=== PATIENT | male | born 1955 | race Caucasian/White ===

== ENCOUNTER 2018-01-28 11:22 | Outpatient (REF) | payer BC, SELFPAY ==
[2018-01-28 21:10] LABS: Anion Gap 10.7 mmol/L (3-11); BUN 8 mg/dL (7-18); CO2 25.3 mmol/L (21.0-32.0); CREATININE 0.85 mg/dL (0.70-1.30); Calcium 8.7 mg/dL (8.5-10.1); Chloride 103 mmol/L (98-107); Cholesterol 131 mg/dL (50-200); Glucose 267 mg/dL (70-100); HDL Cholesterol 35 mg/dL (40-60); LDL CHOLESTEROL 87 mg/dL (<100); Potassium 4.1 mmol/L (3.5-5.1); Sodium 139 mmol/L (136-145); Triglyceride 103 mg/dL (30-150)
[2018-01-31 12:07] LABS: Hepatitis C Ab w Rflx HCV PCR Negative (NEGAT)
== END 2018-01-28 11:42 ==
LOC: NCHCN 11:22
PROVIDERS: PCP Internal Medicine; Visit Provider Internal Medicine
DX: E78.5 Hyperlipidemia, unspecified (principal); I25.10 Atherosclerotic heart disease of native coronary artery without angina pectoris; E66.9 Obesity, unspecified; Z00.00 Encounter for general adult medical examination without abnormal findings; Z11.59 Encounter for screening for other viral diseases
CPT/HCPCS: 80048; 80061; 83721; 86803

== ENCOUNTER 2018-02-02 08:23 | Outpatient (REF) | payer BC, SELFPAY ==
[2018-02-02 12:59] LABS: Glucose 183 mg/dL (70-100)
[2018-02-02 13:51] LABS: Hemoglobin A1C 9.5 % (4.5-6.2)
== END 2018-02-02 08:43 ==
LOC: NCHCN 08:23
PROVIDERS: PCP Internal Medicine; Visit Provider Internal Medicine
DX: R73.9 Hyperglycemia, unspecified (principal)
CPT/HCPCS: 82947; 83036

== ENCOUNTER 2018-02-16 10:27 | Outpatient (CLI) | payer BC, SELFPAY ==
--- NOTE | 2018-02-10 15:30 | DIABASSESS_ITS ---
DESCRIPTION/ASSESSMENT: Juliocesar Valerio presents for newly diagnosed type 2 diabetes focused on nutrition to manage his diabetes. Food - Eats 3 meals a day in addition to snacks plus a snack mid morning. He has cut his portions of cold cereal and stopped added sugar, or g[place] muffin with peanut butter. He has a meat/cheese sandwich with chips, vegetable, fruit and sweet (brownie). He loves his meat and potato with vegetables. He might have fruit in evening. He was drinking large amounts of sweetened iced tea daily as well as 12-16 ounces orange juice and a [place] nectar between meals. Physical Activity - his work gives him intermittent physical activity; some days very active, other days sedentary. His work schedule makes it difficult to do regular physical activity, although he states he has easy access to the [place]. Medication - 500mg Metformin twice daily until he sees his provider in ~6 weeks. Risks/Related health history Coping - states he has stress from work that he does not believe he lets get to him, although he does express frustration when staff does not perform to his expectations. He is also concerned about his father who is failing. INTERVENTION: Explained benefits of early intensive intervention to minimize medication including potential to manage with lifestyle only for some people with diabetes. Explained diagnostic criteria based on A1c. Food Guidelines - reviewed diabetes food guide with emphasis on increased vegetables and decreased processed carbohydrates. He has given up sugar sweetened beverages and is urged to cut back on his portion of juice to 1/2 cup or have orange instead. Physical Activity - explained benefits regarding weight, diabetes, blood pressure. He is encouraged to work toward 150 minutes physical activity per week. Monitoring - checked his blood sugar today: random blood sugar 109mg/dl. Discussed this in relation to blood sugar at diagnosis and blood sugar goals. He wishes to monitor his blood sugars at home. Reviewed procedure for monitoring. He is given log sheet for blood sugar and food and instructed in paired monitoring. Risks/Related health history - history of mild heart attack managed with statin and BP medication. He feels reassured his food changes have resulted in improvement in hyperglycemia. ACTION PLAN: He will continue his current plan and cut back more on beverages containing sugar attempt to increase his physical activity, especially in the winter monitor blood sugars as he is curious about particular foods or times of day We will be in touch by telephone for follow up.
== END 2018-02-16 10:47 ==
PROVIDERS: PCP Internal Medicine; Visit Provider Dietitian, Registered
DX: E11.9 Type 2 diabetes mellitus without complications (principal)
CPT/HCPCS: 97802

== ENCOUNTER 2019-01-31 11:31 | Outpatient (REF) | payer BC, SELFPAY ==
[2019-01-31 21:37] LABS: Anion Gap 11.6 mmol/L (3-11); BUN 11 mg/dL (7-18); CO2 23.4 mmol/L (21.0-32.0); CREATININE 0.86 mg/dL (0.70-1.30); Calcium 8.6 mg/dL (8.5-10.1); Calculated LDL 86 mg/dL; Chloride 106 mmol/L (98-107); Cholesterol 139 mg/dL (50-200); Glucose 149 mg/dL (70-100); HDL Cholesterol 36 mg/dL (40-60); Sodium 141 mmol/L (136-145); Triglyceride 88 mg/dL (30-150)
== END 2019-01-31 11:51 ==
LOC: NCHCN 11:31
PROVIDERS: PCP Internal Medicine; Visit Provider Internal Medicine
DX: E11.65 Type 2 diabetes mellitus with hyperglycemia (principal); E78.5 Hyperlipidemia, unspecified
CPT/HCPCS: 80048; 80061

== ENCOUNTER 2019-05-01 08:52 | Outpatient (REF) | payer BC, SELFPAY ==
[2019-05-01 13:01] LABS: Calculated LDL 81 mg/dL; Cholesterol 134 mg/dL (<200); HDL Cholesterol 35 mg/dL (40-60); Triglyceride 90 mg/dL (<150)
== END 2019-05-01 09:12 ==
LOC: NCHCN 08:52
PROVIDERS: PCP Internal Medicine; Visit Provider Internal Medicine
DX: E78.5 Hyperlipidemia, unspecified (principal)
CPT/HCPCS: 80061

== ENCOUNTER 2019-07-31 09:07 | Outpatient (REF) | payer BC, SELFPAY ==
[2019-07-31 21:08] LABS: Calculated LDL 64 mg/dL (<100); Cholesterol 109 mg/dL (<200); HDL Cholesterol 29 mg/dL (40-60); Triglyceride 82 mg/dL (<150)
== END 2019-07-31 09:27 ==
LOC: NCHCN 09:07
PROVIDERS: PCP Internal Medicine; Visit Provider Internal Medicine
DX: E78.5 Hyperlipidemia, unspecified (principal); E11.65 Type 2 diabetes mellitus with hyperglycemia; I25.10 Atherosclerotic heart disease of native coronary artery without angina pectoris; E66.9 Obesity, unspecified
CPT/HCPCS: 80061

== ENCOUNTER 2020-03-25 17:52 | Outpatient (REF) | payer BC, SELFPAY ==
[2020-03-30 03:43] LABS: Patient Race White; SARS-CoV-2 RNA Undetected (Undetected); SARS-CoV-2 Specimen Source Nasal
== END 2020-03-25 18:12 ==
LOC: NCHCN 17:52
PROVIDERS: PCP Internal Medicine; Visit Provider Internal Medicine
DX: Z20.828 Contact with and (suspected) exposure to other viral communicable diseases (principal)
CPT/HCPCS: U0003

== ENCOUNTER 2020-06-04 15:05 | Outpatient (REF) | payer BC, SELFPAY ==
[2020-06-04 14:37] LABS: Anion Gap 9.1 mmol/L (3-11); BUN 16 mg/dL (7-18); CO2 23.9 mmol/L (21.0-32.0); CREATININE 0.84 mg/dL (0.70-1.30); Calcium 8.9 mg/dL (8.5-10.1); Chloride 107 mmol/L (98-107); Glucose 142 mg/dL (74-106); Potassium 4.1 mmol/L (3.5-5.1); Sodium 140 mmol/L (136-145)
== END 2020-06-04 15:25 ==
LOC: NCHCN 15:05
PROVIDERS: PCP Internal Medicine; Visit Provider Internal Medicine
DX: Z00.00 Encounter for general adult medical examination without abnormal findings (principal); E11.9 Type 2 diabetes mellitus without complications; I25.10 Atherosclerotic heart disease of native coronary artery without angina pectoris; E66.9 Obesity, unspecified
CPT/HCPCS: 80048

== ENCOUNTER 2021-05-05 10:00 | Outpatient (REF) | payer BC, SELFPAY ==
[2021-05-05 15:28] LABS: Anion Gap 7.4 mmol/L (3-11); BUN 14 mg/dL (7-18); CO2 27.6 mmol/L (21.0-32.0); CREATININE 0.8 mg/dL (0.70-1.30); Calcium 8.7 mg/dL (8.5-10.1); Chloride 105 mmol/L (98-107); Glucose 108 mg/dL (74-106); Potassium 4.3 mmol/L (3.5-5.1); Sodium 140 mmol/L (136-145)
== END 2021-05-05 10:01 | disposition home or self-care (01) ==
LOC: NCHCN 10:00
PROVIDERS: PCP Internal Medicine; Visit Provider Internal Medicine
DX: E11.9 Type 2 diabetes mellitus without complications (principal); I25.10 Atherosclerotic heart disease of native coronary artery without angina pectoris
CPT/HCPCS: 80048

== ENCOUNTER 2021-09-15 18:34 | Outpatient (REF) | payer OTHER, SELFPAY ==
[2021-09-17 11:51] LABS: COVID-19 RT-PCR UVMMC Result Positive (Negative)
== END 2021-09-15 18:35 | disposition home or self-care (01) ==
LOC: NCHCN 18:34
PROVIDERS: PCP Internal Medicine; Visit Provider Internal Medicine
DX: Z20.822 Contact with and (suspected) exposure to COVID-19 (principal)
CPT/HCPCS: U0003

== ENCOUNTER 2022-04-13 13:44 | Outpatient (REF) | payer OTHER, SELFPAY ==
[2022-04-13 15:19] LABS: Anion Gap 9.1 mmol/L (3-11); BUN 12 mg/dL (7-18); CO2 24.9 mmol/L (21.0-32.0); CREATININE 0.9 mg/dL (0.70-1.30); Calcium 8.9 mg/dL (8.5-10.1); Chloride 108 mmol/L (98-107); Estimated GFR 94.19 (mL/min/1.73m2); Glucose 131 mg/dL (74-106); Potassium 4.2 mmol/L (3.5-5.1); Sodium 142 mmol/L (136-145)
== END 2022-04-13 13:45 | disposition home or self-care (01) ==
LOC: NCHCN 13:44
PROVIDERS: PCP Internal Medicine; Visit Provider Internal Medicine
DX: Z00.00 Encounter for general adult medical examination without abnormal findings (principal); E11.9 Type 2 diabetes mellitus without complications; I25.10 Atherosclerotic heart disease of native coronary artery without angina pectoris; E66.8 Other obesity
CPT/HCPCS: 80048

== ENCOUNTER 2022-08-11 15:27 | Outpatient (REF) | payer OTHER, SELFPAY ==
[2022-08-11 17:05] LABS: Hemoglobin A1C 10.3 % (<5.7)
== END 2022-08-11 15:28 | disposition home or self-care (01) ==
LOC: NCHCN 15:27
PROVIDERS: PCP Internal Medicine; Visit Provider Internal Medicine
DX: Z00.00 Encounter for general adult medical examination without abnormal findings (principal); E11.9 Type 2 diabetes mellitus without complications; I25.10 Atherosclerotic heart disease of native coronary artery without angina pectoris
CPT/HCPCS: 83036

== ENCOUNTER 2023-07-07 15:09 | Outpatient (REF) | payer BC, SELFPAY ==
[2023-07-07 14:37] LABS: ALT 66 U/L (16-63); AST 44 U/L (15-37); Albumin 3.7 g/dL (3.4-5.0); Alkaline Phosphatase 127 U/L (46-116); Anion Gap 11.5 mmol/L (3-11); BUN 10 mg/dL (7-18); Bilirubin, Total 0.7 mg/dL (0.2-1.0); CO2 24.5 mmol/L (21.0-32.0); CREATININE 0.8 mg/dL (0.70-1.30); Chloride 105 mmol/L (98-107); Glucose 132 mg/dL (74-106); Potassium 4.2 mmol/L (3.5-5.1); Sodium 141 mmol/L (136-145); Total Protein 7.9 g/dL (6.4-8.2)
[2023-07-07 15:10] LABS: Hemoglobin A1C 7.6 % (<5.7)
== END 2023-07-07 15:10 | disposition home or self-care (01) ==
LOC: NCHCN 15:09
PROVIDERS: PCP Internal Medicine; Referring Provider Family Medicine; Visit Provider Family Medicine
DX: E11.9 Type 2 diabetes mellitus without complications (principal)
CPT/HCPCS: 80053; 83036

== ENCOUNTER 2023-09-27 11:35 | Outpatient (REF) | payer BC, SELFPAY ==
[2023-09-27 15:01] LABS: ALT 47 U/L (16-63); AST 29 U/L (15-37); Alkaline Phosphatase 148 U/L (46-116); Anion Gap 7.4 mmol/L (3-11); BUN 16 mg/dL (7-18); Bilirubin, Total 0.8 mg/dL (0.2-1.0); CO2 29.6 mmol/L (21.0-32.0); CREATININE 1.1 mg/dL (0.70-1.30); Calcium 9.5 mg/dL (8.5-10.1); Chloride 105 mmol/L (98-107); Estimated GFR 73.12 (mL/min/1.73m2); Glucose 142 mg/dL (74-106); Potassium 4.9 mmol/L (3.5-5.1); Sodium 142 mmol/L (136-145)
[2023-09-27 15:26] LABS: Hemoglobin A1C 7.6 % (<5.7)
== END 2023-09-27 11:36 | disposition home or self-care (01) ==
LOC: NCHCN 11:35
PROVIDERS: PCP Internal Medicine; Visit Provider Family Medicine
DX: E78.5 Hyperlipidemia, unspecified (principal); E11.9 Type 2 diabetes mellitus without complications
CPT/HCPCS: 80053; 83036

== ENCOUNTER 2024-05-15 15:09 | Outpatient (REF) | payer BC, SELFPAY ==
[2024-05-15 15:40] LABS: ALT 46 U/L (16-63); AST 28 U/L (15-37); Albumin 3.7 g/dL (3.4-5.0); Alkaline Phosphatase 156 U/L (46-116); Anion Gap 7.9 mmol/L (3-11); BUN 11 mg/dL (7-18); Bilirubin, Total 0.68 mg/dL (0.2-1.0); CO2 25.1 mmol/L (21.0-32.0); CREATININE 0.9 mg/dL (0.70-1.30); Calcium 9.1 mg/dL (8.5-10.1); Chloride 107 mmol/L (98-107); Estimated GFR 93.03 (mL/min/1.73m2); GGT 42 U/L (15-85); Glucose 156 mg/dL (74-106); Potassium 4.3 mmol/L (3.5-5.1); Sodium 140 mmol/L (136-145); Total Protein 7.6 g/dL (6.4-8.2)
[2024-05-17 10:58] LABS: Vitamin D 25 Total 17.7 ng/mL (30-100)
[2024-05-19 13:59] LABS: Alkaline Phosphatase 154 U/L (40 - 129); Bone % 18.5 % (19.1-67.7); Intestine 5.1 IU/L (0.0-11.0); Intestine % 3.3 % (0.0-20.6); Liver % 75.5 % (27.8-76.3); Liver 2% 2.7 % (0.0-8.0)
== END 2024-05-15 15:10 | disposition home or self-care (01) ==
LOC: NCHCN 15:09
PROVIDERS: PCP Internal Medicine; Visit Provider Family Medicine
DX: R74.8 Abnormal levels of other serum enzymes (principal)
CPT/HCPCS: 80053; 82306; 84075; 84080; 82977; 83970

== ENCOUNTER 2024-11-17 13:31 | Outpatient (REF) | payer BC, SELFPAY ==
[2024-11-17 16:02] LABS: ALT 59 U/L (16-63); AST 33 U/L (15-37); Albumin 3.9 g/dL (3.4-5.0); Alkaline Phosphatase 163 U/L (46-116); Anion Gap 9.9 mmol/L (3-11); BUN 13 mg/dL (7-18); Bilirubin, Total 1.1 mg/dL (0.2-1.0); CO2 25.1 mmol/L (21.0-32.0); Calcium 8.8 mg/dL (8.5-10.1); Calculated LDL 98 mg/dL (<100); Chloride 104 mmol/L (98-107); Cholesterol 167 mg/dL (<200); Estimated GFR 95.80 (mL/min/1.73m2); Glucose 140 mg/dL (74-106); HDL Cholesterol 40 mg/dL (>or=40); Potassium 4.1 mmol/L (3.5-5.1); Sodium 139 mmol/L (136-145); Total Protein 7.7 g/dL (6.4-8.2); Triglyceride 146 mg/dL (<150); Vitamin D 25 Total 27 ng/mL (30-100)
[2024-11-17 16:14] LABS: COMMENT (LAB VIEW ONLY) 90.97 mg/dL; Microalb ug/mg Crea 4.6 ug/mg Cr
== END 2024-11-17 13:32 | disposition home or self-care (01) ==
LOC: NCHCN 13:31
PROVIDERS: PCP Internal Medicine; Visit Provider Family Medicine
DX: E11.69 Type 2 diabetes mellitus with other specified complication (principal); K76.0 Fatty (change of) liver, not elsewhere classified; E55.9 Vitamin D deficiency, unspecified
CPT/HCPCS: 80053; 80061; 82306; 82043; 82570

== ENCOUNTER 2025-03-27 10:52 | Outpatient (REF) | payer BC, SELFPAY ==
[2025-03-27 15:42] LABS: HCT 50.9 % (40.0-50.0); HGB 17.5 g/dL (13.5-17.5); MCH 30.0 pg (27.0-33.0); MCHC 34.4 % (32.0-36.0); MCV 87 fL (80-95); MPV 10.0 fL (8.0-11.0); Platelet Count 129 10^3/uL (130-400); RBC 5.83 10^6/uL (4.36-5.78); RDW 13.1 % (11.8-14.1); RDW-SD 41.1 fL; WBC 7.82 10^3/uL (4.4-10.8)
[2025-03-27 16:00] LABS: ALT 38 U/L (10-49); AST 33 U/L (<34); Albumin 4.2 g/dL (3.4-5.0); Alkaline Phosphatase 154 U/L (46-116); Anion Gap 10.7 mmol/L (3-11); BUN 17 mg/dL (9-23); Bilirubin, Total 1.00 mg/dL (0.2-1.2); CO2 23.3 mmol/L (20.0-31.0); Calcium 9.1 mg/dL (8.3-10.6); Chloride 107 mmol/L (98-107); Glucose 122 mg/dL (74-106); Potassium 4.1 mmol/L (3.5-5.1); Sodium 141 mmol/L (136-145); Total Protein 7.5 g/dL (5.7-8.2)
[2025-03-27 16:12] LABS: Hemoglobin A1C 6.6 % (<5.7)
== END 2025-03-27 10:53 | disposition home or self-care (01) ==
LOC: NCHCN 10:52
PROVIDERS: PCP Family Medicine; Visit Provider Family Medicine
DX: I10 Essential (primary) hypertension (principal); E11.9 Type 2 diabetes mellitus without complications; E11.69 Type 2 diabetes mellitus with other specified complication
CPT/HCPCS: 80053; 85027; 83036